=== PATIENT | male | born 1985 | race Caucasian/White ===

== ENCOUNTER 2017-05-23 07:59 | Emergency (ER) | payer OTHER ==
[~2017-05-23] VITALS: Ht 180.3 cm; Wt 169.2 kg
[~2017-05-23 07:59] MED LIST: BACTRIM DS 8001 TAB PO; BENADRYL CREAM15 GM TOP; HEP-FORTE1 CAP PO; KEFLEX500 MG PO; MAALOX PLUS30 ML PO; PERCOCET 325 MG1 TA2 PO
[2017-05-23 08:03] VITALS: BP 121/83
--- NOTE | 2017-05-23 08:37 | ED NECK/BACK PAIN COMPLAINT ---
History of Present Illness General Chief Complaint: Low Back Pain/Injury Stated Complaint: LOW BACK PAIN Source: patient Exam Limitations: no limitations Vital Signs & Intake/Output Vital Signs & Intake/Output Vital Signs Date Time Temp Pulse Resp B/P B/P Pulse O2 O2 Flow FiO2 Mean Ox Delivery Rate 05/23 0803 98.6 82 20 121/83 98 Room Air Allergies Coded Allergies: NO KNOWN ALLERGIES (04/14/15) Reconcile Medications Cyclobenzaprine HCl 10 MG TABLET 1 TAB PO Q8P PAIN OR SPASM Meloxicam (Mobic) 15 MG TABLET 1 TAB PO DAILY PAIN Triage Note: PT TO ED C/O LOW BACK PAIN X 2 WEEKS. STATES THIS AM IT GOT WORSE, HAS NOT TRIED OTC MEDS. UNSURE OF ANY INJURY. Triage Nurses Notes Reviewed? yes HPI: 32 yo M presented to the ED with complains of lower back pain for the past 2 week. There was no precipitating event. The pain progressed last night after he tried to change his mattress. He reports the pain aggravates with movement and improves with lying down. He describes it as 7/10 in severity. He also reports the pain radiates to his left leg sometimes. (ENRIQUE WYLIE MD) Past History Travel History Traveled to [place] past 21 day No Medical History Any Pertinent Medical History? 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 No (ENRIQUE WYLIE MD) Review of Systems Review of Systems Constitutional: Reports: no symptoms. Gastrointestinal/Abdominal: Reports: no symptoms. Musculoskeletal: Reports: back pain. Skin: Reports: no symptoms. (ENRIQUE WYLIE MD) Review of Systems Neurological/Psychological: Reports: no symptoms. (JOSE R MAN,LILIANA.) Physical Exam Physical Exam Neck: normal inspection Respiratory: normal breath sounds Back: vertebral tenderness, positive SLR (ENRIQUE WYLIE MD) Physical Exam General Appearance: well developed/nourished, alert, awake, anxious, moderate distress Eyes: Bilateral: PERRL, EOMI. Cardiovascular: regular rate/rhythm, normal peripheral pulses Straight Leg Raising: Right: Negative. Left: Negative. Neurologic/Psych: no motor/sensory deficits, awake, alert, oriented x 3, normal gait, normal mood/affect (JOSE R MAN,BABITA Canseco) Progress Differential Diagnosis: herniated disc, muscular strain Plan of Care: Patient is prescribed pain medications and will follow up with his PCP (ENRIQUE WYLIE MD) Departure Departure Disposition: HOME OR SELF CARE Condition: Stable Clinical Impression Primary Impression: Lower back pain Referrals: DEBORAH GUZMAN,BERT Glover (PCP/Family) Additional Instructions: Take mobic and flexeril for pain. F/U with your primary care physician. Use moist heat. Return for any concerns. Departure Forms: Customer Survey General Discharge Information (ENRIQUE WYLIE MD) Departure Prescriptions: Current Visit Scripts Cyclobenzaprine HCl 1 TAB PO Q8P #20 TAB Meloxicam (Mobic) 1 TAB PO DAILY #30 TAB Resident Co-Sign Statement Statement: ED Attending supervision documentation- [X] I saw and evaluated the patient. I have also reviewed all the pertinent lab results and diagnostic results. I agree with the findings and the plan of care as documented in the Resident's documentation. [X] I have reviewed the ED Record and agree with the Resident's documentation. [] Additions or exceptions (if any) to the Resident's note and plan are summarized below: [Mica seen and examined this patient. I have read the above note and agree with his been written. Patient complaining of an acute exacerbation of chronic low back pain. Pain is worsening over the past 2 weeks. The pain radiates into her buttocks. There is no incontinence of bowel or bladder. Pain is 10 out of 10 and increases with movement. The pain is aching and throbbing in nature. History of leg raise is negative. Patient ambulatory with a normal gait. His reflexes are intact.] (JOSE R MAN,BABITA Canseco)
[2017-05-23] MEDS ORDERED: MOBIC15 M1 PO (08:51)
[2017-05-23] MEDS ORDERED: CYCLOBENZAPRINE10 M1 PO (08:51)
== END 2017-05-23 08:58 ==
LOC: ERH 07:59
DX: M54.5 Low back pain (principal)